=== PATIENT | male | born 1945 | race Caucasian/White ===

== ENCOUNTER 2019-04-30 16:36 | Emergency (ER) | payer MEDICARE, MEDICAID ==
[2019-04-30 16:56] LABS: ABSOLUTE BASOPHILS # (AUTO) 0.1 10^3/uL (0.0-0.2); ABSOLUTE EOSINOPHILS # (AUTO) 0.3 10^3/uL (0.0-0.6); ABSOLUTE LYMPHOCYTES (AUTO) 3.5 10^3/uL (0.5-4.7); ABSOLUTE MONOCYTES (AUTO) 1.1 10^3/uL (0.1-1.4); ABSOLUTE NEUT (AUTO) 7.1 10^3/uL (1.7-8.2); BASOPHILS % (AUTO) 0.6 % (0-2); EOSINOPHILS % (AUTO) 2.3 % (0-6); HEMATOCRIT 39.3 % (37.9-51.0); HEMOGLOBIN 13.8 g/dL (13.5-17.0); LYMPHOCYTES % (AUTO) 29.1 % (13-45); MEAN CORPUSCULAR HEMOGLOBIN 31.4 pg (27.0-33.4); MEAN CORPUSCULAR HGB CONC 35.2 g/dL (32.0-36.0); MEAN CORPUSCULAR VOLUME 89 fl (80-97); MONOCYTES % (AUTO) 9.1 % (3-13); PLATELET COUNT 280 10^3/uL (150-450); RED CELL DISTRIBUTION WIDTH 13.9 % (11.5-14.0); SEGMENTED NEUTROPHILS % (AUTO) 58.9 % (42-78); TOTAL CELLS COUNTED % (AUTO) 100 %
--- NOTE | 2019-04-30 16:58 | ER Document Report ---
ED Medical Screen (RME) - General Chief Complaint: Chest Pain Stated Complaint: CHEST PAIN Time Seen by Provider: 04/30/19 16:46 Primary Care Provider: ROBERTH BAH [Primary Care Provider] - Follow up as needed - HPI Notes: 04/30/19 16:56 74-year-old male with a history of GERD, hypercholesteremia, insomnia presents emergency room for left-sided chest pain that radiated to his arm and jaw while at rest, he called EMS, chest pain was resolved after he was given nitro sublingually. Patient states he has had small episodes of this chest pain but was not nearly as bad as this 1 in which she had to call 911. No prior history of MA, states he did have a stress test approximately 15 years ago. Patient did receive 325 baby aspirin in route. Patient is currently resting without any chest pain. Denies any shortness of breath, nausea vomiting diarrhea, fevers chills, headaches. I have greeted and performed a rapid initial assessment of this patient. A comprehensive ED assessment and evaluation of the patient, analysis of test results and completion of the medical decision making process will be conducted by additional ED providers. PHYSICAL EXAMINATION: GENERAL: Well-appearing, well-nourished and in no acute distress. CV: s1, s2 regular LUNGS: No respiratory distress - Related Data Allergies/Adverse Reactions: No Known Allergies Allergy (Verified 04/30/19 16:39) Physical Exam - Vital signs Vitals: Pulse Ox 94 04/30/19 16:36 Course - Vital Signs Vital signs: Temp Pulse Resp BP Pulse Ox 98.7 F 28 H 144/74 H 98 04/30/19 16:37 04/30/19 16:40 04/30/19 16:40 04/30/19 16:40 - Laboratory Result Diagrams: 04/30/19 16:42 04/30/19 16:42 Doctor's Discharge - Discharge Referrals: ROBERTH BAH [Primary Care Provider] - Follow up as needed
[2019-04-30 17:15] LABS: ALKALINE PHOSPHATASE 63 U/L (38-126); ANION GAP 11 (5-19); ASPARTATE AMINO TRANSFERASE 27 U/L (17-59); BILIRUBIN,DIRECT 0.2 mg/dL (0.0-0.4); BILIRUBIN,TOTAL 0.5 mg/dL (0.2-1.3); BLOOD UREA NITROGEN 21 mg/dL (7-20); CALCIUM 9.1 mg/dL (8.4-10.2); CARBON DIOXIDE 24 mmol/L (22-30); CHLORIDE 104 mmol/L (98-107); CREATINE KINASE 77 U/L (55-170); GLUCOSE 137 mg/dL (75-110); TOTAL PROTEIN 7.4 g/dL (6.3-8.2)
[2019-04-30 17:26] LABS: CREATINE KINASE MB 1.77 ng/mL (<4.55)
[2019-04-30 17:34] LABS: TROPONIN I 0.582 ng/mL
--- NOTE | 2019-04-30 17:36 | RADIOLOGY REPORT (SQ) ---
EXAM DESCRIPTION: CHEST SINGLE VIEW COMPLETED DATE/TIME: 04/30/2019 4:10 pm REASON FOR STUDY: chest pain/SOB COMPARISON: None. EXAM PARAMETERS: NUMBER OF VIEWS: One view. TECHNIQUE: Single frontal radiographic view of the chest acquired. RADIATION DOSE: NA LIMITATIONS: None. FINDINGS: LUNGS AND PLEURA: Small left effusion with compressive atelectasis/ consolidation at the l eft lung base. The right lung is clear. No pneumothorax. MEDIASTINUM AND HILAR STRUCTURES: No masses. Contour normal. HEART AND VASCULAR STRUCTURES: Heart normal in size. Normal vasculature. BONES: No acute findings. HARDWARE: None in the chest. OTHER: No other significant finding. IMPRESSION: Small left pleural effusion with compressive atelectasis/consolidation at the left lung base. TECHNICAL DOCUMENTATION: JOB ID: [id number] 2010 [employer]- All Rights Reserved Reading location - IP/workstation name: [email or web address]
[2019-04-30] MEDS ORDERED: ASPIRIN 81 MG TABLET, CHEWABLE PO ONE (17:42)
--- NOTE | 2019-04-30 17:51 | ER Document Report ---
ED General - General Chief Complaint: Chest Pain > 30 Stated Complaint: CHEST PAIN Time Seen by Provider: 04/30/19 16:46 Primary Care Provider: ROBERTH BAH [NO LOCAL MD] - Follow up as needed Mode of Arrival: Medic Information source: Patient, Emergency Med Personnel TRAVEL OUTSIDE OF THE [place] IN LAST 30 DAYS: No - HPI Onset: Last week Onset/Duration: Gradual Quality of pain: Fullness, Pressure Severity: Moderate Pain Level: 3 Associated symptoms: Nausea, Shortness of breath Exacerbated by: Denies Relieved by: Other - rest and nitroglycerin Similar symptoms previously: No Recently seen / treated by doctor: No Notes: 74 year old male with a history of PVD, HLD, GERD, Esophageal Cancer (treated at [facility]) here for 3 episodes of chest pain in the last week. Today's episode was the worst and lasted the longest. The patient was sitting watching TV when he had chest pain which radiated to his left jaw and left arm. EMS was called and they found the patient to be diaphoretic. EMS gave a full dose ASA and Nitroglycerin spray and his chest pain subsided. The patient has never had a cardiac cath or stress test in the past. - Related Data Allergies/Adverse Reactions: No Known Allergies Allergy (Verified 04/30/19 16:39) Past Medical History - Social History Smoking Status: Current Every Day Smoker Chew tobacco use (# tins/day): No Frequency of alcohol use: Occasional Drug Abuse: None Lives with: Family Family History: Reviewed & Not Pertinent Patient has suicidal ideation: No Patient has homicidal ideation: No - Past Medical History Cardiac Medical History: Reports: Hx Hypercholesterolemia GI Medical History: Reports: Hx Gastroesophageal Reflux Disease Past Surgical History: Reports: Hx Abdominal Surgery - hernia, intestinal Review of Systems - Review of Systems Constitutional: No symptoms reported EENT: No symptoms reported Cardiovascular: No symptoms reported Respiratory: No symptoms reported Gastrointestinal: No symptoms reported Genitourinary: No symptoms reported Male Genitourinary: No symptoms reported Musculoskeletal: No symptoms reported Skin: No symptoms reported Hematologic/Lymphatic: No symptoms reported Neurological/Psychological: No symptoms reported -: Yes All other systems reviewed and negative Physical Exam - Vital signs Vitals: Pulse Ox 94 04/30/19 16:36 - Notes Notes: GENERAL: Well-appearing, well-nourished and in no acute distress. HEAD: Atraumatic, normocephalic. EYES: Pupils equal round and reactive to light, extraocular movements intact, sclera anicteric, conjunctiva are normal. ENT: TMs normal, nares patent, oropharynx clear without exudates. Moist mucous membranes. NECK: Normal range of motion, supple without lymphadenopathy or JVD. LUNGS: Breath sounds clear to auscultation bilaterally and equal. No wheezes rales or rhonchi. HEART: Regular rate and rhythm without murmurs, rubs or gallops. ABDOMEN: Soft, nontender, normoactive bowel sounds. No guarding, no rebound. No masses appreciated. EXTREMITIES: Normal range of motion, no pitting or edema. No clubbing or cyanosis. NEUROLOGICAL: Cranial nerves II through XII grossly intact. Normal speech, normal gait. PSYCH: Normal mood, normal affect. SKIN: Warm, Dry, normal turgor, no rashes or lesions noted. Course - Re-evaluation Re-evalutation: 04/30/19 18:00 The patient has T wave inversions and a Troponin of 0.5 and his story is concerning for ACS. Patient is currently chest pain free after ASA and Nitro. Will start patient on Heparin and seek transfer since patient needs a cardiac cath and likely intervention. 04/30/19 18:09 [facility] accepted [facility] patient to a Cardiac Tele Bed. - Vital Signs Vital signs: Temp Pulse Resp BP Pulse Ox 98.7 F 20 118/70 96 04/30/19 16:37 04/30/19 17:01 04/30/19 17:01 04/30/19 17:01 - Laboratory Result Diagrams: 04/30/19 16:42 04/30/19 16:42 Laboratory results interpreted by me: 04/30/19 04/30/19 16:42 16:42 WBC 12.0 H BUN 21 H Glucose 137 H - Diagnostic Test Radiology reviewed: Image reviewed, Reports reviewed - EKG Interpretation by Me EKG shows normal: Sinus rhythm, Intervals Rate: Normal Rhythm: NSR [place]/QRS: Left axis deviation, LAHB/LAFB Additional EKG results interpreted by me: 04/30/19 17:43 T wave inversions in V1-V3, aVR Discharge - Discharge Clinical Impression: NSTEMI (non-ST elevated myocardial infarction) Condition: Stable Disposition: [facility] Admitting Provider: Dr. Melgar Unit Admitted: Telemetry Referrals: LOCALMD,NO [NO LOCAL MD] - Follow up as needed
[2019-04-30] MEDS ORDERED: HEPARIN SODIUM,PORCINE/D5W 25,000 UNIT/250 ML RTUINJ IV PRN (18:02)
[2019-04-30] MEDS ORDERED: HEPARIN SOD (PORCINE) 1,000 UNIT/ML 10 ML VIAL IV ONE (18:02)
[2019-04-30 18:41] LABS: INTERNATIONAL RATION (INR) 1.06; PROTHROMBIN TIME 13.8 SEC (11.4-15.4)
[2019-04-30 18:42] LABS: PARTIAL THROMBOPLASTIN TIME 27.8 SEC (23.5-35.8)
[2019-04-30 20:09] VITALS: BP 133/69
[2019-04-30] MEDS ORDERED: HEPARIN SOD (PORCINE) 1,000 UNIT/ML 10 ML VIAL IV PRN (21:03)
--- NOTE | 2019-04-30 21:47 | EKG REPORT ---
SEVERITY:- ABNORMAL ECG - SINUS RHYTHM LEFT ANTERIOR FASCICULAR BLOCK : Confirmed by: Catarina Call MD 30-Apr-2019 21:46:13
== END 2019-04-30 20:23 | disposition short-term general hospital (02) ==
LOC: ER 16:36
DX: I21.4 Non-ST elevation (NSTEMI) myocardial infarction (principal); I44.4 Left anterior fascicular block; R11.0 Nausea; R06.02 Shortness of breath; F17.200 Nicotine dependence, unspecified, uncomplicated
CPT/HCPCS: 93005; 96376; 99285; 96365; 36415; 82553; 82550; 85025; 85610; 85730; 80053; 84484; 71045; 93010; J1644 ×2